=== PATIENT | female | born 1950 | race Caucasian/White ===

== ENCOUNTER 2017-04-23 09:50 | Inpatient (IN) | payer OTHER ==
[~2017-04-23] VITALS: Ht 162.6 cm; Wt 96.4 kg
[~2017-04-23 09:50] MED LIST: BACITRACIN 50,000 UNIT ONE; BUPIVACAINE/PF-EPI 0.5% 1:200K ONE; THROMBIN 5,000 UNIT VIAL TP ONE
[2017-04-23] MEDS ORDERED: LACTATED RINGERS 1,000 ML IV SCH (12:10)
[2017-04-23] MEDS ORDERED: DULO60CA7 PO (12:17)
[2017-04-23] MEDS ORDERED: TRAM50TA2 PO (12:17)
[2017-04-23] MEDS ORDERED: ALPR-475 PO (12:17)
[2017-04-23] MEDS ORDERED: METH10SO PO (12:17)
[2017-04-23] MEDS ORDERED: CYCL-259 PO (12:17)
[2017-04-23] MEDS ORDERED: LIDOCAINE 1%, 2ML SQ PRN (12:30)
[2017-04-23 12:38] VITALS: BP 171/94
[2017-04-23] MEDS ORDERED: MIDAZOLAM 1 MG/ML, 2ML ONE (12:45)
[2017-04-23] MEDS ORDERED: FENTANYL PF 250 MCG/5ML ONE (12:45)
[2017-04-23] MEDS ORDERED: KETAMINE 10 MG/ML, 20ML ONE (12:45)
[2017-04-23] MEDS ORDERED: LABETALOL 5MG/ML, 20ML ONE (14:25)
[2017-04-23] MEDS ORDERED: DEXAMETHASONE 4 MG/ML, 1ML ONE (14:25)
[2017-04-23] MEDS ORDERED: PROPOFOL 10 MG/ML, 20ML ONE (14:25)
[2017-04-23] MEDS ORDERED: SUCCINYLCHOLINE 20 MG/ML, 10ML ONE (14:25)
[2017-04-23] MEDS ORDERED: PROPOFOL 10 MG/ML, 50ML ONE (14:25)
[2017-04-23] MEDS ORDERED: CEFAZOLIN 1,000 MG ONE (14:25)
[2017-04-23] MEDS ORDERED: ONDANSETRON 2MG/ML, 2ML ONE (14:25)
[2017-04-23] MEDS ORDERED: PHENYLEPHRINE 10 MG/ML ONE (14:25)
[2017-04-23] MEDS ORDERED: HYDROmorphone 2 MG/ML, 1ML ONE (15:19)
[2017-04-23] MEDS ORDERED: HYDROmorphone 1 MG/ML, 1ML IV PRN (16:30)
[2017-04-23] MEDS ORDERED: MEPERIDINE/PF 25MG/0.5ML IVPush PRN (16:30)
[2017-04-23] MEDS ORDERED: hydrALAzine 20 MG/ML, 1ML IV PRN (16:30)
[2017-04-23] MEDS ORDERED: MIDAZOLAM 1 MG/ML, 2ML IV PRN (16:30)
[2017-04-23] MEDS ORDERED: DIAZEPAM 5 MG/ML, 2ML IV PRN (16:30)
[2017-04-23] MEDS ORDERED: ALBUTEROL/IPRATROPIUM 2.5MG/0.5MG, 3 ML NPPB PRN (16:30)
[2017-04-23] MEDS ORDERED: ACETAMINOPHEN 325 MG TABLET PO PRN (16:30)
[2017-04-23] MEDS ORDERED: LABETALOL 5MG/ML, 20ML IV PRN (16:30)
[2017-04-23] MEDS ORDERED: ONDANSETRON 2MG/ML, 2ML IVPush PRN ×2 (16:30→17:30)
[2017-04-23] MEDS ORDERED: OXYcodone 5 MG/5 ML ORAL.SOL UDC PO PRN (16:30)
[2017-04-23] MEDS ORDERED: PROMETHAZINE 25 MG/ML, 1ML IV PRN (16:30)
[2017-04-23] MEDS ORDERED: FENTANYL PF 100 MCG/2ML IV PRN (16:30)
[2017-04-23] MEDS ORDERED: HYDROmorphone 1 MG/ML, 1ML ONE (17:03)
[2017-04-23] MEDS ORDERED: MEPERIDINE/PF 50 MG/ML ONE (17:25)
[2017-04-23] MEDS ORDERED: HYDROmorphone PCA 30 MG/30 ML ONE (17:25)
[2017-04-23] MEDS ORDERED: HYDROmorphone PCA 30 MG/30 ML IV PRN (17:30)
[2017-04-23] MEDS ORDERED: PROMETHAZINE 25 MG/ML, 1ML IM PRN (17:30)
[2017-04-23] MEDS ORDERED: OXYcodone/APAP 5/325MG TABLET PO PRN (17:30)
[2017-04-23] MEDS ORDERED: morphine SULFATE 10 MG/ML, 1ML IVPush PRN (17:30)
[2017-04-23] MEDS ORDERED: DIAZEPAM 5 MG TABLET PO PRN (17:30)
[2017-04-23] MEDS ORDERED: DIPHENHYDRAMINE 50 MG/ML, 1ML IVPush PRN (17:30)
[2017-04-23] MEDS ORDERED: PHARMACY MAY ADJ FOR RENAL FX MC PRN (17:30)
[2017-04-23] MEDS ORDERED: MEPERIDINE/PF 100 MG/ML IM PRN (17:30)
[2017-04-23] MEDS ORDERED: BISACODYL 10 MG SUPP PR PRN (17:30)
[2017-04-23] MEDS ORDERED: DIAZEPAM 5 MG/ML, 2ML IVPush PRN (17:30)
[2017-04-23] MEDS ORDERED: MAGNESIUM HYDROXIDE 8%, 30ML UDC PO PRN (17:30)
[2017-04-23 19:05] VITALS: BP 162/84
[2017-04-23] MEDS: SODIUM CHLORIDE FLUSH 10ML SYR IVF SCH (20:54)
[2017-04-23] MEDS: CYCLOBENZAPRINE 10 MG TABLET PO SCH (20:54)
[2017-04-23] MEDS: NS + 20MEQ KCL 1,000 ML IV SCH (21:37)
[2017-04-23] MEDS: CEFAZOLIN PMX 1GM/50ML 50 ML IVPB SCH (22:38)
[2017-04-23] MEDS: HYDROcodone/APAP 10/325 MG TABLET PO PRN (22:56)
[2017-04-24 00:33] VITALS: BP 158/80
[2017-04-24] MEDS: HYDROcodone/APAP 10/325 MG TABLET PO PRN ×4 (02:09→15:34)
[2017-04-24 02:40] VITALS: BP 140/77
[2017-04-24 06:10] LABS: BLOOD UREA NITROGEN 8 mg/dL (7-18)
[2017-04-24 07:00] VITALS: BP 139/93
[2017-04-24] MEDS: CEFAZOLIN PMX 1GM/50ML 50 ML IVPB SCH (07:22)
[2017-04-24] MEDS: NS + 20MEQ KCL 1,000 ML IV SCH (07:23)
[2017-04-24] MEDS: SODIUM CHLORIDE FLUSH 10ML SYR IVF SCH (08:39)
[2017-04-24] MEDS: CYCLOBENZAPRINE 10 MG TABLET PO SCH (08:39)
[2017-04-24] MEDS ORDERED: DULOXETINE 30 MG CAPSULE.DR PO SCH (09:00)
[2017-04-24] MEDS ORDERED: SENNA/DOCUSATE TABLET PO SCH (09:00)
[2017-04-24] MEDS ORDERED: METHADONE PO SCH (09:00)
[2017-04-24] MEDS ORDERED: METHADONE 10 MG TABLET ONE (09:15)
[2017-04-24] MEDS ORDERED: HYDR-3307 PO (14:56)
[2017-04-24] MEDS ORDERED: CYCL-259 PO (14:58)
[2017-04-24 15:19] VITALS: BP 142/85
[2017-04-25] MEDS ORDERED: METHADONE INTENSOL 10 MG/ML ORAL CONC PO SCH (09:00)
== END 2017-04-24 15:55 | disposition home health service (06) | DRG 472 ==
LOC: ORIP 11:20 → 4NOR 19:02
PROVIDERS: ADMIT Neurological Surgery; ATTEND Neurological Surgery
PROC: 0RB30ZZ Excision of Cervical Vertebral Disc, Open Approach (ICD-10-PCS; 2017-04-23)
PROC: 0RG2070 Fusion of 2 or more Cervical Vertebral Joints with Autologous Tissue Substitute, Anterior Approach, Anterior Column, Open Approach (ICD-10-PCS; 2017-04-23)
PROC: 4A11X4G Monitoring of Peripheral Nervous Electrical Activity, Intraoperative, External Approach (ICD-10-PCS; 2017-04-23)
PROC: 0RG10A0 Fusion of Cervical Vertebral Joint with Interbody Fusion Device, Anterior Approach, Anterior Column, Open Approach (ICD-10-PCS; principal; 2017-04-23 14:00)
DX: M48.02 Spinal stenosis, cervical region (principal); M47.12 Other spondylosis with myelopathy, cervical region; M50.023 Cervical disc disorder at C6-C7 level with myelopathy; F32.9 Major depressive disorder, single episode, unspecified; G47.33 Obstructive sleep apnea (adult) (pediatric); G89.29 Other chronic pain; I10 Essential (primary) hypertension; F17.210 Nicotine dependence, cigarettes, uncomplicated
CPT/HCPCS: 36415; 72040; 80048; 85025; 86850; 86900; 95938; 95941; C1713; J0690; J1100; J1170; J2175; J2250; J2405; J2704; J3010; J3360; J3480; J0330; J2370; J7120